=== PATIENT | female | born 2000 | race African-American/Black ===

== ENCOUNTER 2022-02-24 20:20 | Emergency (ER) | payer BC, OTHER ==
[2022-02-24 20:34] VITALS: TEMP 97.9
[2022-02-24] MEDS ORDERED: ONDANSETRON ODT 4 MG TAB PO STA (21:09)
[2022-02-24] MEDS ORDERED: IBUPROFEN 600 MG TAB PO STA (21:09)
--- NOTE | 2022-02-24 23:06 | ED ---
General Adult HPI - General Chief complaint: Upper Respiratory Infection Stated complaint: Fever,headach Time Seen by Provider: 02/24/22 20:48 Source: patient, RN notes reviewed Mode of arrival: ambulatory Limitations: no limitations - History of Present Illness Initial comments: 22-year-old female presents to the emergency Department with complaints of headache, scratchy throat, and chest congestion 3-4 days. Patient states she has not taken anything at home to treat her symptoms. There are no aggravating or alleviating factors. Also complains of body aches and low back discomfort. States she has had a loss of appetite. 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 Denies fever, chills, dizziness, chest pain, shortness of breath, abdominal pain, vomiting, diarrhea, or dysuria. - Related Data Home Medications Medication Instructions Recorded Confirmed No Known Home Medications 02/24/22 02/24/22 Allergies Allergy/AdvReac Type Severity Reaction Status Date / Time No Known Allergies Allergy Verified 02/24/22 21:29 Review of Systems ROS Statement: Those systems with pertinent positive or pertinent negative responses have been documented in the HPI. ROS Other: All systems not noted in ROS Statement are negative. Past Medical History Past Medical History: No Reported History History of Any Multi-Drug Resistant Organisms: None Reported Past Surgical History: No Surgical Hx Reported Past Psychological History: No Psychological Hx Reported Smoking Status: Never smoker Past Alcohol Use History: None Reported Past Drug Use History: None Reported General Exam Limitations: no limitations (Well-developed, well-nourished female in no acute distress. Initial temperature 97.9, pulse 111, respirations 20, blood pressure 122/75, pulse ox 98% on room air.) General appearance: alert, in no apparent distress ENT exam: Present: normal exam, normal oropharynx, mucous membranes moist, TM's normal bilaterally Neck exam: Present: normal inspection, full ROM. Absent: tenderness, meningismus, lymphadenopathy Respiratory exam: Present: normal lung sounds bilaterally. Absent: respiratory distress, wheezes, rales, rhonchi, stridor Cardiovascular Exam: Present: regular rate, normal rhythm, normal heart sounds. Absent: systolic murmur, diastolic murmur, rubs, gallop, clicks GI/Abdominal exam: Present: soft, normal bowel sounds. Absent: distended, tenderness, guarding, rebound, rigid Back exam: Present: normal inspection, full ROM. Absent: CVA tenderness (R), CVA tenderness (L) Neurological exam: Present: alert, oriented X3, CN II-XII intact, normal gait Psychiatric exam: Present: normal affect, normal mood Skin exam: Present: warm, dry, intact, normal color. Absent: rash Course Vital Signs 02/24/22 02/25/22 20:31 01:56 Temperature 97.9 F Pulse Rate 111 H 78 Respiratory 20 15 Rate Blood Pressure 122/75 116/74 O2 Sat by Pulse 98 100 Oximetry - Reevaluation(s) Reevaluation #1: 02/24/22 23:00 Upon reevaluation, patient reports feeling some improvement. She is asked to provide a urine sample and is able to do so, however does report that she is currently menstruating. Instructed on preparation. 02/25/22 01:45 Patient updated on results. Discussed discharge home with symptomatic treatment. Patient verbalizes understanding and agrees with this plan. Medical Decision Making - Medical Decision Making This is a well appearing 22-year-old who presents to the emergency department for evaluation. Upon exam, patient is in no acute distress. Lung sounds are clear to auscultation. Physical exam findings are unremarkable. Vital signs are stable. Patient is given Motrin and Zofran with some improvement. Influenza and Covid swabs are negative. Urinalysis is not concerning for infectious process. She will be discharged home with instructions on symptomatic treatment. Encouraged to follow up with her PCP for recheck as needed. Return parameters discussed in detail. Patient verbalizes under standing and agrees with this plan. Attending: Biju. - Lab Data Lab Results 02/24/22 02/24/22 02/25/22 Range/Units 21:40 21:40 00:20 Urine Color Yellow Urine Appearance Clear (Clear) Urine pH 6.0 (5.0-8.0) Ur Specific [place] 1.035 (1.001-1.035) Urine Protein 1+ H (Negative) Urine Glucose (UA) Negative (Negative) Urine Ketones 3+ H (Negative) Urine Blood Large H (Negative) Urine Nitrite Negative (Negative) Urine Bilirubin Negative (Negative) Urine Urobilinogen <2.0 (<2.0) mg/dL Ur Leukocyte Esterase Negative (Negative) Urine RBC >182 H (0-5) /hpf Urine WBC 3 (0-5) /hpf Ur Squamous Epith Cells 1 (0-4) /hpf Urine Mucus Many H (None) /hpf Coronavirus (PCR) Not Detected (Not Detectd) Influenza Type A RNA Not Detected (Not Detectd) Influenza Type B (PCR) Not Detected (Not Detectd) Disposition Clinical Impression: URI (upper respiratory infection) Disposition: HOME SELF-CARE Condition: Stable Instructions (If sedation given, give patient instructions): Upper Respiratory Infection (ED) Additional Instructions: Alternate Tylenol and Motrin as needed for fever and body aches. Rest. Increase fluids. Consider electrolyte solution such as Gatorade or Powerade. Run a vaporizer or humidifier in the room in which you sleep. Follow-up with your PCP for a recheck next week if needed. Return to the emergency department with any new, worsening, or concerning symptoms. Is patient prescribed a controlled substance at d/c from ED?: No Referrals: Jaime Miles DO [Primary Care Provider] - 1-2 days
[2022-02-25 01:21] LABS: Appearance,Urine Clear (Clear); Bilirubin,Urine Negative (Negative); Blood,Urine Large (Negative); Color,Urine Yellow; Glucose,Urine (UA) Negative (Negative); Ketones,Urine 3+ (Negative); Leukocyte Esterase,Urine Negative (Negative); Mucus,Urine Many /hpf; Nitrite,Urine Negative (Negative); Protein,Urine 1+ (Negative); RBC,Urine >182 /hpf (0-5); Specific Gravity,Urine 1.035 (1.001-1.035); Squamous Epithelial Cell,Urine 1 /hpf (0-4); Urobilinogen,Urine <2.0 mg/dL (<2.0); WBC,Urine 3 /hpf (0-5)
[2022-02-25 01:57] VITALS: BP 116/74; PULSE 78; RESP 15
== END 2022-02-25 01:57 | disposition home or self-care (01) ==
LOC: EC 20:20
DX: J06.9 Acute upper respiratory infection, unspecified (principal); Z20.822 Contact with and (suspected) exposure to COVID-19
CPT/HCPCS: 81001; 87502; 87635; 99283

== ENCOUNTER → 2023-02-15 | Outpatient (CLI) | payer BC, OTHER ==
[2023-02-15 10:19] VITALS: BP 115/74; PULSE 110; RESP 16; TEMP 98.4
--- NOTE | 2023-02-15 10:26 | P.GSHP ---
History of Present Illness H&P Date: 02/15/23 Chief Complaint: mass left breast Юлия is a 23 year old female who noted a mass in her left breast 4 months ago. She underwent an ultrasound of the area on which revealed a 2.5 cm x 1.9 cm lesion in the 6 o'clock position of the left breast. This was most likely consistent with a fibroadenoma. The patient states it is decreased in size since she noticed it. It is not tender. It seems to move around. She is not complaining of any other lumps masses or nodules. It does not change with her menstrual cycle. She is never had any surgery on her breast. She's not had any recent trauma or infection in the breast. She is not sexually active she has not had any pregnancies. Note Catherine shaw 12-04-22; Dr. Miles Caffeine:occasional nicotine: none BCP: never hormones: none Family History: negative for cancer or breast disease Hormonal History: menarche: 16 not sexually active LMP Feb.01, regular Surgical history: none Medical HIstory: none Social History: Nicotine: Negative Alcohol: Occasional Drugs: Negative - Constitutional Constitutional: Denies chills, Denies fever - EENT Eyes: bilateral pain, denies blurred vision Ears: deny: decreased hearing, tinnitus Ears, nose, mouth and throat: Denies headache, Denies sore throat - Breasts Breasts: bilateral: as per HPI - Cardiovascular Cardiovascular: Reports chest pain, Denies shortness of breath - Respiratory Respiratory: Denies cough, Denies 7 - Gastrointestinal Gastrointestinal: Reports constipation, Reports diarrhea, Denies abdominal pain, Denies nausea, Denies vomiting - Genitourinary (Female) Comment: UTI Genitourinary: Denies dysuria, Denies hematuria - Menstruation Menstruation: Reports period normal - Musculoskeletal Musculoskeletal: Denies myalgias - Integumentary Integumentary: Reports rash - Neurological Neurological: Denies numbness, Denies weakness - Psychiatric Psychiatric: Denies anxiety, Denies depression - Endocrine Endocrine: Denies fatigue, Denies weight change - Hematologic/Lymphatic Comment: none - Allergic/Immunologic Allergic/Immunologic: Reports seasonal allergies Past Medical History Past Medical History: No Reported History History of Any Multi-Drug Resistant Organisms: None Reported Past Surgical History: No Surgical Hx Reported Past Psychological History: No Psychological Hx Reported Smoking Status: Never smoker Past Alcohol Use History: None Reported Past Drug Use History: None Reported Medications and Allergies Home Medications Medication Instructions Recorded Confirmed Type No Known Home Medications 02/24/22 02/15/23 History Allergies Allergy/AdvReac Type Severity Reaction Status Date / Time No Known Allergies Allergy Verified 02/15/23 09:59 Surgical - Exam Vital Signs Temp Pulse Resp BP Pulse Ox 98.4 F 110 H 16 115/74 93 L 02/15/23 09:59 02/15/23 09:59 02/15/23 09:59 02/15/23 09:59 02/15/23 09:59 - General no distress - Eyes normal ocular movement - ENT no hearing loss - Neck trachea midline - Respiratory normal respiratory effort, clear to auscultation - Cardiovascular Heart Sounds: normal: S1, S2 - Abdomen Abdomen: soft, non tender, no guarding, no rigid, no rebound - Integumentary normal turgor - Neurologic no disoriented, no combative - Musculoskeletal normal gait - Psychiatric oriented to time, oriented to person, oriented to place, speech is normal, memory intact Breast Exam: BRA: 40DD Inspection: Rash inner portion right breast/bilateral grade 2 ptosis Palpation: Right breast: Multi-positional exam no dominant masses or nodules of concern Right axilla: No adenopathy of concern Left breast: Multi-positional exam fibrocystic changes, in the 6 o'clock position there is approximately a 1-1/2-2 cm area of firmness which is freely mobile consistent with what was seen on ultrasound Left axilla: No adenopathy of concern Results Ultrasound results reviewed Assessment and Plan Assessment: Impression: Rash right breast/question fungal infection Mass left breast 6:00 area probable fibroadenoma Plan: Nystatin to rash right breast Ultrasound core biopsy left breast Follow up after ultrasound core biopsy CC: Hyacinth Simmons
== END ==
LOC: WWCWWP 09:51
PROVIDERS: ATTEND Surgery
DX: N63.25 Unspecified lump in the left breast, overlapping quadrants (principal)

== ENCOUNTER → 2023-02-27 | Day surgery (SDC) | payer BC, OTHER ==
--- NOTE | 2023-03-05 09:54 | USB ---
Pathology Description: Location: 6 o'clock. Marker Left Behind. Needle Type: Mammotome Cores: 4 Gauge: 13 The procedure of ultrasound guided core biopsy was explained to the patient. Benefits, alternatives, and risks were discussed. An informed consent was then obtained. The patient was placed in supine positioning for imaging and for the procedure. The overlying skin was prepped and draped in usual sterile fashion. Lidocaine buffered with epinephrine was used as anesthetic into the skin and subcutaneous tissue up to area of concern in the left breast at 6:00 4 cm from the nipple. Under ultrasound guidance, a 12-gauge vacuum assisted biopsy gun device was used to obtain 4 core samples. Following this, a biopsy clip ([place] ray[place] butterfly) was left along the edge of the lesion due to migration. The patient tolerated the procedure well without any immediate complication. The patient was kept in the radiology department for short stay after the procedure and then discharged home in stable condition. No postprocedure mammogram was obtained due to patient's age. Impression: Successful, uncomplicated ultrasound guided core biopsy of area of concern in the left breast, full pathology results to follow. Pathology Results: Result: Benign, Fibroadenoma. LEFT BREAST, SIX O'CLOCK, POSITION, ULTRASOUND GUIDED CORE BIOPSY: Benign fibroadenoma. Overall Assessment: Benign Management: Diagnostic Breast Ultrasound of the left breast in 6 months. Electronically signed and approved by: Sergio Lee D.O.
== END ==
LOC: RADUSWWP 07:52
PROVIDERS: ATTEND Surgery
DX: D24.2 Benign neoplasm of left breast (principal)
CPT/HCPCS: 88305; 19083; A4648